=== PATIENT | male | born 1945 | race Caucasian/White ===

== ENCOUNTER 2017-08-02 13:04 | Day surgery (SDC) | payer OTHER ==
[~2017-08-02] VITALS: Ht 182.9 cm; Wt 86.6 kg
[~2017-08-02 13:04] MED LIST: ASPIR-LOW81 MG PO; ATORVASTATIN CA40 MG PO; AVENTYL,PAMELOR25 MG PO; CLOPIDOGREL75 MG PO; DIOVAN80 MG PO; FLOMAX0.4 MG PO; GABAPENTIN100 MG PO; LIPITOR40 MG PO; LO-DOSE ASPIRIN81 M1 PO; Motrin PO; NABUMETONE750 M1 PO; NEURONTIN100 MG PO; PERCOCET 7.5-31 EACH PO; PERCOCET 7.51 TABLET PO; PLAVIX75 MG PO; PROTONIX20 MG PO; PROTONIX40 MG PO; ULTRAM50 MG PO; VICODIN,LORT1 TABLET PO; ZESTRIL20 MG PO
== END 2017-08-02 15:35 | disposition home or self-care (01) ==
LOC: PAIN 13:04
DX: M47.816 Spondylosis without myelopathy or radiculopathy, lumbar region (principal); I10 Essential (primary) hypertension; I25.10 Atherosclerotic heart disease of native coronary artery without angina pectoris; Z95.5 Presence of coronary angioplasty implant and graft; E78.2 Mixed hyperlipidemia; Z87.891 Personal history of nicotine dependence; Z79.82 Long term (current) use of aspirin
CPT/HCPCS: J1030; J2250; J3010; S0020